=== PATIENT | male | born 1975 | race Caucasian/White ===

== ENCOUNTER 2025-01-31 18:45 | Emergency (ER) | payer BC, SELFPAY ==
[2025-01-31 18:47] VITALS: BP 133/80; PULSE 85; RESP 15; TEMP 36.2; O2SAT 96
[2025-01-31 18:50] VITALS: BMI 44.1
--- NOTE | 2025-01-31 19:00 | RAD_ITS ---
PROCEDURE: ANKLE MIN 3 VIEWS REASON FOR EXAM: 49-year-old male, left ankle pain, unable to bear weight. TECHNIQUE: 3 view(s) of the left ankle COMPARISON: None. FINDINGS: Diffuse osseous demineralization. No visible fracture. No suspicious bone lesion. Moderate arthrosis. Normal alignment. Mortise appears intact. No effusion. Soft tissues are unremarkable. RAD/Ankle min 3 Views IMPRESSION: No acute fracture. Reading Location: [id number]
--- NOTE | 2025-01-31 19:41 | EDS_ITS ---
HPI History of Present Illness Chief Complaint: Lower Extremity Injury PFSH ON LICENSE OF [facility] Home Medications ?Medication ?Instructions ?Recorded ?Last Taken ?Type citalopram 20 mg tablet 20 mg PO DAILY 06/28/14 Unkn own History lisinopril 20 mg tablet 20 mg PO DAILY 06/28/14 Unkn own History cyclobenzaprine 10 mg tablet 10 mg PO TID PRN PRN Musc le Spasm 07/06/16 Unknown Rx ##14 hydrocodone-acetaminophen 5-325mg 1 tab PO Q6H PRN PRN Pain ##10 07/06/16 Unknow n Rx 5mg-325mg ibuprofen 400 mg tablet 800 mg (2 x 400 mg) PO Q8H P RN PRN 07/06/16 Unknown Rx Pain ##14 Allergy/AdvReac Type Severity Reaction Status Date / Time No Known Allergies Allergy Verified 01/31/25 18:50 Social History (System 01/19/20 @ 14:54 by Giorgio Patel) Smoking Status: Never smoker EXAM Physical Exam Const Vital Signs: 01/31/25 18:47 Temperature 97.2 F L Temperature Source Temporal Pulse Rate 85 Respiratory Rate 15 Blood Pressure 133/80 H Blood Pressure Mean 97 Pulse Ox 96 Oxygen Delivery Method [place] [facility] [place] Medical decision making narrative: HISTORY OF PRESENT ILLNESS: 49-year-old male presents with left ankle pain. Notes he heard a pop. Notes he had difficulty bearing weight secondary to pain REVIEW OF SYSTEMS: Pertinent positives: Left ankle pain Pertinent negatives: Numbness, tingling, loss of sensation PHYSICAL EXAM: Nursing triage notes reviewed, Vital signs reviewed Constitutional: please see mdm Extremities: Left ankle with slight edema and TTP over lateral ligamentous structures. Overall intact ligamentous structures in terms of plantar and dorsiflexion, inversion and eversion. Compartments are soft to the left lower extremity Neuro: Intact sensation L1-S1 dermatomal distributions. Intact 5/5 strength in hip flexion (T12-L3). Knee extension (L2-L4). Ankle dorsiflexion (L4-L5). Ankle plantar flexion (S1). Great toe extension (L5). 2+ patellar and Achilles DTRs. Skin: No rash or lesions noted MEDICAL DECISION MAKING: Chief Complaint: Ankle pain MDM Narrative: The patient was initially hemodynamically stable, afebrile and nontoxic- appearing. Exam with swelling TTP over lateral ligamentous structures. I considered the following differential diagnosis: Ankle fracture, dislocation, ankle sprain X-rays obtained in triage ALL IMAGES (IF OBTAINED) HAVE BEEN PERSONALLY REVIEWED AND INTERPRETED BY MYSELF. X-ray of the left ankle read reviewed personally so showed no evidence of obvious bony abnormality such as fracture or dislocation. Radiologist agreed my interpretation. Patient was given RICE instructions. Ankle sprain instructions. Strict return precautions. Lei wrap applied. The patient and/or family, caregivers express understanding. The patient and/or family, caregivers agrees with the plan. Shared decision making: I will have a discussion with the patient and or visitors regarding risk/benefits of further testing or admission. They will be made aware of of the risk/benefits inherent in this decision they will be given the opportunity to voice understanding. Total critical care time today provided was at least 0 minutes. This excludes separately billable procedures. Critical care time (if documented) is secondary to the patient having high probability of clinically significant/life threatening deterioration in the patient's condition which required my urgent intervention. Impression: 1. Acute left ankle Dispo: Discharge home This note was generated with [employer] dictation software. It may contain incorrect words, spelling, and punctuation that were not noted in review of the chart prior to signing. Radiography Diagnostic Testing: Clinical Impression(s) from Imaging Studies Ankle X-Ray 01/31/25 19:00 IMPRESSION: No acute fracture. Reading Location: [facility] Discharge Plan Triage Chief Complaint: Lower Extremity Injury ED Provider: Cristofer Santana Dx/Rx/DC Orders Instructions: ED Sprain Ankle W X Ray, ED RICE Prescriptions: No Action lisinopril 20 MG tablet 20 mg PO DAILY citalopram 20 MG tablet 20 mg PO DAILY cyclobenzaprine 10 MG tablet 10 mg PO TID PRN PRN (Reason: Muscle Spasm) Qty: 14 0RF hydrocodone-acetaminophen 1 TABLET tablet 1 tab PO Q6H PRN PRN (Reason: Pain) Qty: 10 0RF ibuprofen 400 MG tablet 800 mg PO Q8H PRN PRN (Reason: Pain) Qty: 14 0RF Stand Alone Forms: ED Work / School Excuse Primary Care Provider: Alex Branch Referrals: Compa Samaniego PA [Non-Staff] - Activity Restrictions/Additional Instructions: Thank you for trusting us with your care today! Your x-ray did not reveal evidence of a broken bone. You likely suffered from an ankle sprain. Please take Tylenol (2 pills, 650 mg), ibuprofen (2 pills, 400 mg) every 6 hours as needed for pain and fever control. Please rest, ice, compress and elevate the involved extremity. Please perform progressive range of motion exercises after 24 hours rest. Please return to the emergency department if your symptoms change or worsen. Please follow with your primary care physician for further outpatient evaluation and management. Print Language: Palauan Disposition Disposition: Home, Self Care
== END 2025-01-31 20:18 | disposition home or self-care (01) ==
PROVIDERS: Emergency Provider Emergency Medicine; PCP Family Medicine; Referring Provider Emergency Medicine; Visit Provider Emergency Medicine
DX: M25.572 Pain in left ankle and joints of left foot (principal)
CPT/HCPCS: 73610; 99282

== ENCOUNTER 2025-09-09 17:37 | Inpatient (IN) | payer BC, SELFPAY ==
[2025-09-09] VITALS (8 sets, daily range): BP systolic 112–166; BP diastolic 75–107; PULSE 99–115; RESP 16–20; TEMP 37.2–38.5; O2SAT 93–100; BMI 44.0; BMI 42.7
--- NOTE | 2025-09-09 18:54 | CT_ITS ---
PROCEDURE: CT/Soft Tissue Neck WITH Contrast
[2025-09-09] MEDS: 0.9% Normal Saline (1000mL) 1,000 ML 1000 ML IV (19:10)
[2025-09-09 19:27] LABS: Hematocrit 47.8 % (40-54); Hemoglobin 16.7 g/dL (13.0-16.5); Immature Granulocytes Count 0.100 X10^3/uL (0.0-0.0); Mean Corp Hgb Conc 34.9 g/dL (32-36); Mean Corpuscular Volume 87.2 fL (80-94); Mean Platelet Vol. 10.4 fl (6.2-12.0); NRBC Flagged by Analyzer 0 % (0-5); Platelet Count 203 K/mm3 (150-450); RBC Distribution Width CV 11.5 % (11.6-14.6); RBC Distribution Width SD 37.2 fl (35.1-43.9); Red Blood Count 5.48 M/mm3 (4.6-6.2); White Blood Count 16.6 K/mm3 (4.4-11.0)
[2025-09-09] MEDS: Ampicillin/Sulbactam 3 GM in 0.9% Normal Saline (100mL MB+) 100 ML IV (19:28)
[2025-09-09 19:40] LABS: AST(SGOT) 20 U/L (<=37); Alanine Aminotransfer ALT/SGPT 26 U/L (<=46); Albumin, Serum 4.4 g/dL (3.5-5.0); Alkaline Phosphatase 48 U/L (40-129); Anion Gap 14 (5-15); BUN 8 mg/dL (4-19); BUN/Creat Ratio 10.1 RATIO (10-20); Calcium,Total 9.3 mg/dL (7.6-11.0); Carbon Dioxide 22.5 mmol/L (21.0-32.0); Chloride 99 mmol/L (98-108); Estimated Creatinine Clearance 153.15 ml/min (50-250); Globulin 3.2 g/dL (2.2-4.2); Glucose 162 mg/dL (70-99); Potassium 4.0 mmol/L (3.3-5.1)
--- NOTE | 2025-09-09 21:16 | EX.ED.DYSGE1 ---
HPI History of Present Illness Chief Complaint: Sore Throat Detail of Chief Complaint: Sore throat, difficulty swallowing, fever and chills Informant: patient and spouse/S.O. Onset/Context/Timing Onset: Yesterday Context: Sudden Onset Timing: Continuous Quality: Pain Location: Larynx/anterior neck Current Severity: Moderate Maximum Severity: Severe Worsened by: Swallowing saliva or anything Relieved by: Nothing Associated Symptoms Associated Symptoms: Fever and chills and change in voice Narrative Narrative: Patient is a 49-year-old male. He presents with sore throat, fever, chills and change in voice. He denies cough, rhinorrhea or congestion. He denies rash. He denies myalgias arthralgias. He has no history of medic fever, heart murmur, SBE. He has recently seen Dr. Leland Walton. Patient denies headache, photophobia, visual change, auditory symptoms, posterior neck pain. Patient reports significant pain with swallowing. He denies drooling. He does have poor dentition. He localizes the pain to the larynx area. Prior similar symptoms: No Recent Illness/Hospitalization: No PFSH PFSH Medical History (Updated 09/09/25 @ 21:[address] Sheri Allen MD) Heavy alcohol use Past history of chewing tobacco use Morbid obesity Hyperlipemia GERD (gastroesophageal reflux disease) Hypertension Sleep apnea Home Medications ?Medication ?Instructions ?Recorded ?Last Taken ?Type lisinopril 20 mg tablet 20 mg PO DAILY 06/28/14 Unknown History ibuprofen 400 mg tablet 800 mg (2 x 400 mg) PO Q8H PRN PRN 07/06/16 Unknown Rx Pain ##14 atorvastatin 20 mg tablet 20 mg PO DAILY 09/09/25 Unknown History omeprazole 40 mg capsule,delayed 40 mg PO DAILY 09/09/25 Unknown History release Allergy/AdvReac Type Severity Reaction Status Date / Time No Known Allergies Allergy Verified 09/09/25 17:39 Family History (Updated 09/09/25 @ 21:[address] Sheri Allen MD) Mother PAF (paroxysmal atrial fibrillation) Heart disease Hypertension Diabetes Father COPD (chronic obstructive pulmonary disease) Surgical History (Updated 09/09/25 @ 21:[address] Sheri Allen MD) Hx of hand surgery Social History (Updated 09/09/25 @ 21:[address] Sheri Allen MD) household members: spouse Smoking Status: Never smoker Smokeless tobacco user: chewing tobacco how long ago did patient quit smoking: Quit chew tobacco mid August 2025, using nicotine supplements currently. alcohol intake: current alcohol intake frequency: 3 or more drinks per day Alcohol type: beer details: 4-5 beers daily. No Hx withdrawal sxs if does not. substance use type: does not use ROS ROS ED Constitutional Constitutional ED: Reports chills, fever(s) and sweats; Denies subjective Eyes Eyes: Denies blurry vision, change in vision or diplopia ENT ENT ED: Reports sore throat; Denies ear pain or rhinorrhea Cardiovascular Cardiovascular: Denies chest pain or palpitations Respiratory/Chest Respiratory/Chest: Denies cough, dyspnea or dyspnea on exertion Gastrointestinal Gastrointestinal: Denies abdominal pain, nausea or vomiting Musculoskeletal Musculoskeletal: Reports neck pain; Denies arthralgias or myalgias Integumentary Denies rash Neurologic Neurologic: Denies paresthesias or weakness Endocrine Endocrinology: Denies cold intolerance or heat intolerance Hematologic/Lymphatic Hematologic/Lymphatic: Reports systems reviewed and no addt'l complaints, except as documented EXAM Physical Exam Const Vital Signs: 09/09/25 17:39 09/09/25 18:54 09/09/25 20:00 Temperature 101.3 F H 99.7 F H 99.7 F H Temperature Source Oral Oral Oral Pulse Rate 115 H 112 H 115 H Respiratory Rate 20 H 18 20 H Blood Pressure 148/105 H 166/102 H 148/93 H Blood Pressure Mean 119 123 111 Pulse Ox 96 94 100 Oxygen Delivery Method Room Air Room Air Room Air 09/09/25 21:00 09/09/25 22:00 09/09/25 22:03 Temperature 100.2 F H 100.2 F H 100.2 F H Temperature Source Oral Oral Pulse Rate 106 H 101 H 101 H Respiratory Rate 20 H 18 18 Blood Pressure 148/107 H 112/75 112/75 Blood Pressure Mean 120 87 87 Pulse Ox 96 95 95 Oxygen Delivery Method Room Air Room Air Positive well nourished, well developed and obese General Appearance ED: well developed; Negative for cyanotic, diaphoretic, NAD or pallor Nutritional Appearance: obese HEENT Reports moist mucous membranes HEENT Narrative: Uvula is midline. Patient has very large tonsils and almost abutting the uvula. There is some erythema of the soft tissue anterior to the anterior tonsillar pillars bilaterally. Patient does not complain of pain in his throat he points to his larynx. The trachea is midline. There is struder there is some shoddy cervical nodes noted. Eyes PERRL and EOMs intact bilaterally General Eye ED: Negative for pale conjunctiva or scleral icterus Neck no lymphadenopathy, supple and no JVD Chest Wall inspection of chest normal and palpation of chest normal Resp normal respiratory effort and clear to auscultation bilaterally Cardio regular rhythm, S1 normal heart sound, S2 normal heart sound and no murmurs Rate: tachycardic GI normal to inspection, nondistended, normoactive bowel sounds, non-tender, non-distended and no masses; Negative for hepatosplenomegaly Extremity normal to inspection Neuro oriented x3 and CN's II-XII intact bilaterally Sensorium / Orientation: alert Psych mental status grossly normal Skin no rashes or lesions noted, no wounds and skin turgor normal General Skin Exam: Negative for jaundice or pallor MDM MDM MDM Narrative Medical decision making narrative: Patient with abnormal sounds on auscultation of neck. Need to consider retropharyngeal abscess, parapharyngeal abscess, epiglottitis, exudative tonsillitis, patient does have poor dentition. Because of him complaining of pain anteriorly and he and his stating his neck appears swollen and the fact that he is febrile we will obtain a CT of the neck to rule out abscess, Blood cultures were obtained and appropriate laboratory studies obtained to assess white count as well as endorgan dysfunction. Patient received 1 L of normal saline wide open. He also received 3.0 g of Unasyn IV piggyback. After reviewing the CT he received 10 mg of Decadron. Patient was given a glass of water. He is able to drink 1 ounce. Since patient is having significant difficulties swallowing abilities not drooling recommendation is admission. He is agreeable. Spoke with the hospitalist. She requested that I speak with person on-call for ENT and if they have any recommendations. Lab Data Attestation: I reviewed the patient's lab results. Lab results narrative: White count is elevated 16.6 thousand with shift. Competence of metabolic panel is marked for glucose of 162. CO2 anion gap are normal. Lactate is normal. Labs: Laboratory Results - last 24 hr 09/09/25 19:05 WBC 16.6 H RBC 5.48 Hgb 16.7 H Hct 47.8 MCV 87.2 MCH 30.5 MCHC 34.9 RDW Std Deviation 37.2 RDW Coeff of Joaquin 11.5 L Plt Count 203 MPV 10.4 Immature Gran % (Auto) 0.600 Neut % (Auto) 82.4 H Lymph % (Auto) 8.4 L [place] % (Auto) 7.9 Eos % (Auto) 0.2 Baso % (Auto) 0.5 Absolute Neuts (auto) 13.7 H Absolute Lymphs (auto) 1.40 Nucleated RBC % 0 Sodium 135 Potassium 4.0 Chloride 99 Carbon Dioxide 22.5 Anion Gap 14 BUN 8 Creatinine 0.83 Estim Creat Clear Calc 153.15 Est GFR (MDRD) Non-Af 108 BUN/Creatinine Ratio 10.1 Glucose 162 H Lactic Acid 1.3 Calcium 9.3 Total Bilirubin 1.28 AST 20 ALT 26 Alkaline Phosphatase 48 Total Protein 7.5 Albumin 4.4 Globulin 3.2 Albumin/Globulin Ratio 1.4 Radiography Diagnostic Testing: Clinical Impression(s) from Imaging Studies Soft Tissue Neck CT 09/09/25 18:54 IMPRESSION: 1. Enlargement of the palatine tonsils, as may be seen with tonsillitis. There is suggestion of hypodensity within the left palatine tonsil which could represent phlegmon/abscess. Of note, neoplasm is not excluded on the basis of this exam, recommend direct visual inspection. 2. Narrow caliber of the basilar artery. Correlate with exam and recommend dedicated imaging if there is concern for posterior ischemia. Reading Location: [id number] Management Discussion w/another healthcare provider: Hospitalist (Documented narrative and of the MDM.) and [place] Drier Operator (Spoke with Dr. Riaz Obregon who is on-call for ENT. He agreed with treatment plan. This was relayed to Dr. Allen) Discharge Plan Dx/Rx/DC Orders Clinical Impression: Acute streptococcal tonsillitis, Dysphonia, Dysphagia, Fever and chills, Sinus tachycardia Disposition Disposition: [facility] Care [facility]
--- NOTE | 2025-09-09 21:21 | PCM.HP.STD ---
HPI - General General Date of Admission: 09/09/25 Date of Service: 09/09/25 Chief Complaint: Fever, sore throat, malaise, fatigue. HPI Narrative The patient is a 49 y/o M w/ PMHx: Former chew tobacco use, Heavy EtOH usage (4-5 beers daily, not since onset recently illness), Morbid obesity, HTN, HLD, GERD, RE who presents to the [facility] ED on 09/09/2025 with history of onset sore throat, fever, malaise, fatigue with no improvement with OTC medications starting on Wednesday progressively worsening prompting ED evaluation.Patient notes difficulty swallowing secondary to severity of pain elicited. Workup in the ED included T99.7, heart rate 115, BP 140/93, respiratory rate 20, 100% room air, CT soft tissue neck with enlargement of pallentine tonsils suggestive of hypodensity within the left palatine tonsil and possibly a phlegmon/abscess, incidentally noted narrow caliber basilar artery, CBC with WC 16.6,Hgb16.7, platelet 203 with left shift, CMP unremarkable aside glucose 162, lactic acid 1.3, blood culture x 2 pending per ED. In the ED patient administered Decadron 10 mg IV x 1 as well as Unasyn 3 g IV x 1 and 1 L normal saline. Patient reportedly saw Leland Webb approximately 1 week prior to current presentation at that time for specific ear issues ongoing. ED notes intention to discuss current status of patient and plan of care with ENT on-call and once this is performed if appropriate will plan admission with continued consultation in case of intervention needs. [facility]LY [facility] Medical History Heavy alcohol use Past history of chewing tobacco use Morbid obesity Hyperlipemia GERD (gastroesophageal reflux disease) Hypertension Sleep apnea Home Medications ?Medication ?Instructions ?Recorded ?Last Taken ?Type lisinopril 20 mg tablet 20 mg PO DAILY 06/28/14 Unknown History ibuprofen 400 mg tablet 800 mg (2 x 400 mg) PO Q8H PRN PRN 07/06/16 Unknown Rx Pain ##14 atorvastatin 20 mg tablet 20 mg PO DAILY 09/09/25 Unknown History omeprazole 40 mg capsule,delayed 40 mg PO DAILY 09/09/25 Unknown History release Allergy/AdvReac Type Severity Reaction Status Date / Time No Known Allergies Allergy Verified 09/09/25 17:39 Family History (Updated 09/09/25 @ 21:[address] Sheri Allen MD) Mother PAF (paroxysmal atrial fibrillation) Heart disease Hypertension Diabetes Father COPD (chronic obstructive pulmonary disease) Surgical History (Updated 09/09/25 @ 21:[address] Sheri Allen MD) Hx of hand surgery Social History (Updated 09/09/25 @ 21:[address] Sheri Allen MD) household members: spouse Smoking Status: Never smoker Smokeless tobacco user: chewing tobacco how long ago did patient quit smoking: Quit chew tobacco mid August 2025, using nicotine supplements currently. alcohol intake: current alcohol intake frequency: 3 or more drinks per day Alcohol type: beer details: 4-5 beers daily. No Hx withdrawal sxs if does not. substance use type: does not use ROS ROS Narrative Admission Review of Systems: CONSTITUTIONAL: No weight loss, + fever, chills, weakness or fatigue. HEENT: + Sore throat. Eyes: No visual loss, blurred vision, double vision or yellow sclerae. Ears, Nose, Throat: No hearing loss, sneezing, congestion, runny nose. SKIN: No rash or itching, lesions, wounds. CARDIOVASCULAR: No chest pain, chest pressure or chest discomfort, palpitations, edema, orthopnea, syncopal events. RESPIRATORY: No shortness of breath, cough or sputum, wheezing, hemoptysis. GASTROINTESTINAL: + anorexia. No nausea, vomiting or diarrhea, abdominal pain, melena, BRBPR. GENITOURINARY: No dysuria, frequency, urgency or retention. NEUROLOGICAL: No headache, dizziness, syncope, paralysis, ataxia, numbness or tingling in the extremities, focal weakness, change in bowel or bladder control, seizure. MUSCULOSKELETAL: + muscle, back pain, joint pain or stiffness. HEMATOLOGIC: No anemia, bleeding or bruising. LYMPHATICS: No enlarged nodes. No history of splenectomy. PSYCHIATRIC: No history of depression or anxiety. ENDOCRINOLOGIC: No reports of sweating, cold or heat intolerance. No polyuria or polydipsia. ALLERGIES: No history of asthma, hives, eczema or rhinitis. Vital Signs Vital Signs Vital Signs: 09/09/25 17:39 09/09/25 18:54 09/09/25 20:00 Temperature 101.3 F H 99.7 F H 99.7 F H Temperature Source Oral Oral Oral Pulse Rate 115 H 112 H 115 H Respiratory Rate 20 H 18 20 H Blood Pressure 148/105 H 166/102 H 148/93 H Blood Pressure Mean 119 123 111 Pulse Ox 96 94 100 Oxygen Delivery Method Room Air Room Air Room Air 09/09/25 21:00 Temperature 100.2 F H Temperature Source Oral Pulse Rate 106 H Respiratory Rate 20 H Blood Pressure 148/107 H Blood Pressure Mean 120 Pulse Ox 96 Oxygen Delivery Method Room Air Weight Weight: 306 lb 14.135 oz Body Mass Index (BMI) 44.0 Physical Exam Narrative Physical Examination: General: Awake, alert, oriented x 3 and cooperative, seated upright in the ED bed, fatigued, uncomfortable appearing. Skin: Normal color, normal turgor, no icterus, no cyanosis except occasional abrasion. HEENT: AT/NC, EOMI, PERRLA, dry MM, notably enlarged tonsils nearly abutting the uvula with erythema of the soft tissues bilaterally, notable tenderness to palpation of the cervical lymph nodes with some enlargement, no carotid bruits, difficult discern JVD given very thickened neck. Lungs: Mildly diminished, greater bases, appropriate effort, no rales, ronchi or wheezing. Heart: Mildly tachycardic with regular rhythm; no gallop, rub audible. Abdomen: Soft, morbidly obese, NTTP, no obvious distention, distant normal BS, no appreciated HSM however habitus makes evaluation difficult. Extremities: No cyanosis, no clubbing, no significant distal edema. Neurological: Patient awake, alert, oriented as noted, cognitive function intact; pupils equally reactive to light and accommodation, cranial nerves grossly normal, moving all 4 extremities, no focal deficits, strength mildly to moderately globally decreased secondary to acute presentation complaints. Psychiatric: Affect appears fatigued, uncomfortable, ill-appearing, no acute evidence of depressive or anxiety feelings. Results Lab / Micro Data 09/09/25 19:05 09/09/25 19:05 Labs: Laboratory Results - last 24 hr 09/09/25 19:05: WBC 16.6 H, RBC 5.48, Hgb 16.7 H, Hct 47.8, MCV 87.2, MCH 30.5, MCHC 34.9, RDW Std Deviation 37.2, RDW Coeff of Joaquin 11.5 L, Plt Count 203, MPV 10.4, Immature Gran % (Auto) 0.600, Neut % (Auto) 82.4 H, Lymph % (Auto) 8.4 L, [place] % (Auto) 7.9, Eos % (Auto) 0.2, Baso % (Auto) 0.5, Absolute Neuts (auto) 13.7 H, Absolute Lymphs (auto) 1.40, Nucleated RBC % 0, Sodium 135, Potassium 4.0, Chloride 99, Carbon Dioxide 22.5, Anion Gap 14, BUN 8, Creatinine 0.83, Estim Creat Clear Calc 153.15, Est GFR (MDRD) Non-Af 108, BUN/Creatinine Ratio 10.1, Glucose 162 H, Lactic Acid 1.3, Calcium 9.3, Total Bilirubin 1.28, AST 20, ALT 26, Alkaline Phosphatase 48, Total Protein 7.5, Albumin 4.4, Globulin 3.2, Albumin/Globulin Ratio 1.4 Micro: Microbiology 09/09/25 19:38 Swab (Method) Streptococcus pyogenes (PCR) - Final Streptococcus Group A Imaging Radiology Impression Soft Tissue Neck CT 09/09/25 18:54 IMPRESSION: 1. Enlargement of the palatine tonsils, as may be seen with tonsillitis. There is suggestion of hypodensity within the left palatine tonsil which could represent phlegmon/abscess. Of note, neoplasm is not excluded on the basis of this exam, recommend direct visual inspection. 2. Narrow caliber of the basilar artery. Correlate with exam and recommend dedicated imaging if there is concern for posterior ischemia. Reading Location: [id number] Assessment & Plan Assessment/Plan (1) Acute tonsillitis: (2) Tonsillar abscess: PLAN: Plan The patient is a 49 y/o M w/ PMHx: Former chew tobacco use, Heavy EtOH usage (4-5 beers daily, not since onset recently illness), Morbid obesity, HTN, HLD, GERD, RE who presents to the [facility] ED on 09/09/2025 with history of onset sore throat, fever, malaise, fatigue with no improvement with OTC medications prompting ED evaluation.Patient notes difficulty swallowing secondary to severity of pain elicited. #1. Acute tonsillitis with possible phlegmon/abscess of the left pallentine tonsil: Will admit to medical surgical floor, will maintain on clear liquids until midnight with n.p.o. status following, will maintain on IV Decadron, will maintain on IV Unasyn, will continue patient home PPI, will have as needed pain regimen and antiemetic regimen, will continue ED initiated ENT consultation as long as on-call physician is willing to evaluate patient during her admission in case of intervention needs. #2. Incidentally noted narrow caliber basilar artery: CT soft tissue neck with incidentally noted narrow caliber basilar artery, encourage continued follow-up and imaging outpatient as needed. #3. Hyperglycemia without diabetic history: Admission glucose 162, possibly stress response but given history to be cautious hemoglobin A1c requested especially given plan usage of steroids. #4. Hypertension: Continue home regimen including lisinopril with hold parameters as needed, PRN hydralazine. #5. Hyperlipidemia: Will continue patient patient on statin therapy. #6. Morbid Obesity: Weight loss and lifestyle changes encouraged. #7. RE: Patient does not use PAP therapy. #8. EtOH Abuse: Patient notes routine consumption of 4-5 beers per day although he has had none since onset of his illness on Wednesday with no withdrawal symptoms reported. Will maintain on CIWA protocol, MVI, thiamine and folic acid. Magnesium and phosphorus levels were requested. Discussed and strongly encouraged reduction of alcohol intake. #9. GERD: Continue patient on PPI. #10. Former chew tobacco: Encouraged continued tobacco cessation. #11. DVT prophylaxis: SCDs in case of operative intervention needs. Charges/Coding Visit Charges Inpatient E&M: 44163 Init Hosp L3
[2025-09-09 22:30] LABS: Magnesium 2.1 mg/dL (1.5-2.2)
[2025-09-09] MEDS: BENZOCAINE/MENTHOL 1 LOZENGE MUCOUS MEM (23:33)
[2025-09-10] VITALS (10 sets, daily range): BP systolic 144–153; BP diastolic 86–103; PULSE 81–90; RESP 16–17; TEMP 36.4–36.7; O2SAT 83–97
--- NOTE | 2025-09-10 | NURSING ---
PT IS NPO
[2025-09-10] MEDS: 0.9% Normal Saline (1000mL) 1,000 ML 100 ML IV (00:07)
[2025-09-10] MEDS: Ampicillin/Sulbactam 3 GM in 0.9% Normal Saline (100mL MB+) 100 ML IV ×3 (00:10→11:17)
--- NOTE | 2025-09-10 01:44 | EKG12_ITS ---
Test Reason : AM EKG
[2025-09-10 06:06] LABS: Hematocrit 45.7 % (40-54); Hemoglobin 16.3 g/dL (13.0-16.5); Immature Granulocytes Count 0.080 X10^3/uL (0.0-0.0); Mean Corp Hgb Conc 35.7 g/dL (32-36); Mean Corpuscular Volume 87.7 fL (80-94); Mean Platelet Vol. 10.4 fl (6.2-12.0); NRBC Flagged by Analyzer 0 % (0-5); Platelet Count 195 K/mm3 (150-450); RBC Distribution Width CV 11.7 % (11.6-14.6); RBC Distribution Width SD 37.7 fl (35.1-43.9); Red Blood Count 5.21 M/mm3 (4.6-6.2); White Blood Count 15.4 K/mm3 (4.4-11.0)
[2025-09-10 06:42] LABS: AST(SGOT) 18 U/L (<=37); Alanine Aminotransfer ALT/SGPT 26 U/L (<=46); Albumin, Serum 4.2 g/dL (3.5-5.0); Alkaline Phosphatase 48 U/L (40-129); Anion Gap 12 (5-15); BUN 10 mg/dL (4-19); BUN/Creat Ratio 13.7 RATIO (10-20); Calcium,Total 9.1 mg/dL (7.6-11.0); Carbon Dioxide 21.1 mmol/L (21.0-32.0); Chloride 102 mmol/L (98-108); Estimated Creatinine Clearance 176.01 ml/min (50-250); Globulin 3.1 g/dL (2.2-4.2); Glucose 213 mg/dL (70-99); Potassium 4.2 mmol/L (3.3-5.1)
[2025-09-10] MEDS: Thiamine Hydrochloride 100 MG Tablet PO (08:11)
--- NOTE | 2025-09-10 09:42 | PN.HOSP_ITS ---
Reason for Visit
--- NOTE | 2025-09-10 09:42 | PCM.PN.HOSP ---
Reason for Visit Chief Complaint: Fever, sore throat, malaise, fatigue. Subjective Subjective Still has a little bit of a sore throat and slight change in voice but significantly improved from yesterday, no difficulty breathing, able to swallow with pain much better than it had been Objective Data Objective Data Vital Signs: Vital Signs Temp Pulse Resp BP Pulse Ox O2 Del Method O2 Flow Rate 97.8 F 84 16 149/103 H 96 Room Air 2 09/10/25 08:06 09/10/25 08:06 09/10/25 08:06 09/10/25 08:06 09/10/25 08:06 09/10/25 08:06 09/10/25 06:35 Oxygen Flow Rate (L/min) 2 Oxygen Delivery Method Room Air Weight: 135 kg Body Mass Index (BMI) 42.7 Intake & Output: Intake and Output for Last 24 Hours 09/08/25 09/09/25 09/10/25 23:59 22:59 23:59 Intake Total 1100 / 1100 300 / 300 Balance 1100 / 1100 300 / 300 Lab / Micro Data 09/10/25 05:34 09/10/25 05:34 Labs: Laboratory Results - last 24 hr 09/09/25 19:05: WBC 16.6 H, RBC 5.48, Hgb 16.7 H, Hct 47.8, MCV 87.2, MCH 30.5, MCHC 34.9, RDW Std Deviation 37.2, RDW Coeff of Joaquin 11.5 L, Plt Count 203, MPV 10.4, Immature Gran % (Auto) 0.600, Neut % (Auto) 82.4 H, Lymph % (Auto) 8.4 L, [place] % (Auto) 7.9, Eos % (Auto) 0.2, Baso % (Auto) 0.5, Absolute Neuts (auto) 13.7 H, Absolute Lymphs (auto) 1.40, Nucleated RBC % 0, Sodium 135, Potassium 4.0, Chloride 99, Carbon Dioxide 22.5, Anion Gap 14, BUN 8, Creatinine 0.83, Estim Creat Clear Calc 153.15, Est GFR (MDRD) Non-Af 108, BUN/Creatinine Ratio 10.1, Glucose 162 H, Lactic Acid 1.3, Calcium 9.3, Phosphorus 2.7, Magnesium 2.1, Total Bilirubin 1.28, AST 20, ALT 26, Alkaline Phosphatase 48, Total Protein 7.5, Albumin 4.4, Globulin 3.2, Albumin/Globulin Ratio 1.4 09/10/25 05:34: WBC 15.4 H, RBC 5.21, Hgb 16.3, Hct 45.7, MCV 87.7, MCH 31.3, MCHC 35.7, RDW Std Deviation 37.7, RDW Coeff of Joaquin 11.7, Plt Count 195, MPV 10.4, Immature Gran % (Auto) 0.500, Neut % (Auto) 93.1 H, Lymph % (Auto) 4.8 L, [place] % (Auto) 1.4, Eos % (Auto) 0.0, Baso % (Auto) 0.2, Absolute Neuts (auto) 14.3 H, Absolute Lymphs (auto) 0.74 L, Nucleated RBC % 0, Sodium 135, Potassium 4.2, Chloride 102, Carbon Dioxide 21.1, Anion Gap 12, BUN 10, Creatinine 0.71, Estim Creat Clear Calc 176.01, Est GFR (MDRD) Non-Af 113, BUN/Creatinine Ratio 13.7, Glucose 213 H, Hemoglobin A1c 6.0 H, Calcium 9.1, Total Bilirubin 0.80, AST 18, ALT 26, Alkaline Phosphatase 48, Total Protein 7.2, Albumin 4.2, Globulin 3.1, Albumin/Globulin Ratio 1.3 Micro: Microbiology 09/09/25 19:38 Swab (Method) Streptococcus pyogenes (PCR) - Final Streptococcus Group A Radiography Diagnostic Testing: Radiology Impression Soft Tissue Neck CT 09/09/25 18:54 IMPRESSION: 1. Enlargement of the palatine tonsils, as may be seen with tonsillitis. There is suggestion of hypodensity within the left palatine tonsil which could represent phlegmon/abscess. Of note, neoplasm is not excluded on the basis of this exam, recommend direct visual inspection. 2. Narrow caliber of the basilar artery. Correlate with exam and recommend dedicated imaging if there is concern for posterior ischemia. Reading Location: [facility] Physical Exam Narrative General: Alert, oriented, no apparent distress HEENT: Atraumatic, normocephalic, difficult to visualize posterior pharynx with habitus and tongue Eyes: Anicteric, normal conjunctiva, extraocular movements grossly intact Neck: Some tenderness palpation but not firm and patient reports that tenderness is significantly better Respiratory: Clear to auscultation bilaterally, normal respiratory effort Cardiovascular: Regular rate and rhythm GI: Soft, nontender, nondistended Extremities: No significant pitting peripheral edema Musculoskeletal: Moving all extremities Neuro: No overt focal neurological deficits Skin: No rashes appreciated Psych: Cooperative Assessment & Plan Assessment/Plan (1) Acute streptococcal tonsillitis: (2) Tonsillar abscess: PLAN: Plan 49-year-old male history of hypertension and GERD presented to [facility] ED 09/09/2025 due to sore throat, difficulty swallowing, and fever and chills. In the ED temp 101.3, heart rate 115, blood pressure 148/105 with a pulse ox 96% on room air. White count found to be 16 with a hemoglobin of 16.7, lactic acid 1.3. Patient had CT of the neck which demonstrated enlargement of palatine tonsils consistent with tonsillitis as well as hypodensity within left palatine tonsil which could represent phlegmon/abscess and noted could not exclude neoplasm on basis of exam and recommended direct visual inspection. Patient given 10 mg of Decadron, 3 g of Unasyn and normal saline and hospitalist contacted for admission. They requested ENT be contacted given the nature of the case and ED physician spoke with Dr. Obregon he was in agreement with plan. Patient admitted. # Acute tonsillitis with possible phlegmon/abscess of left palatine tonsil - Based on CT scan -Found to be strep a positive - Patient was given clear liquid diet and n.p.o. at midnight in the event he needs intervention - IV Decadron - IV Unasyn - Home PPI - Supportive care - ENT consultation #Incidentally noted narrow caliber basilar artery -CT soft tissue neck with incidentally noted narrow caliber basilar artery, encourage continued follow-up and imaging outpatient as needed #Hypertension - Continue lisinopril # Hyperlipidemia - Continue statin #GERD -Continue PPI # Alcohol use -Patient does drink several drinks a day however has not drank since symptoms started on Wednesday and denies any alcohol withdrawal symptoms -Was started on CIWA to monitor symptoms on presentation to evaluate for any developing withdrawal -Started on thiamine and folate #DVT ppx: SCDs Rose Zaidi MD Charges/Coding Visit Charges Inpatient E&M: 34941 Subs Hosp L2
[2025-09-10] MEDS: 0.9% Saline Lock 10 ML Syringe IV (11:19)
--- NOTE | 2025-09-10 12:45 | CASEMGMT ---
HILLARY FREGOSO Assessment: Face to Face with pt for initial transition planning/care coordination assessment. RN ZENOBIA introduced self and role at [facility], pt voices understanding and consents to assessment. Pt is A&O x4 and answers all questions appropriately at this time. Pt sitting up in bed in no distress with at bedside. Care providers, pharmacy, and demographics verified/updated. Admitting Dx: acute tonsilitis with tonsillar abscess Strata Score: 1 PCP:RODRIGO Thomson Specialists:[facility]- pt could not recall name of provider. Preferred Pharmacy: [facility] Insurance: [employer] Prescription Benefit: yes LNOK: Ashley Ball, sharad Living Arrangements: Pt lives with and dtr in a two story home with a ramp and 1 step to enter through the back. Pt reports he is I in ADLs/IADLs and denies concerns at home. Transportation: Pt drives self and denies concerns with transportation. DME:shower chair, cane, walker- Pt does not use AD HHC/SNF: Denies hx of Pt states no concerns with going home at time of dc. Pt states he does not smoke cigarettes or use illegal/street drugs. Pt states he drinks 4 beers per day. Pt denies need for resources for cessation, pt states I can stop if I want. Pt is awaiting consult from ENT. Pt states no further concerns/needs. CM to follow. Advised pt to ask CM if any further questions/concerns/needs arise, voices understanding. Pt Goal: Home Plan: Home Claudia THORNTON CM
--- NOTE | 2025-09-10 17:25 | DCINST_ITS ---
Discharge Instructions
--- NOTE | 2025-09-10 17:25 | PCM.DC ---
Discharge Instructions DC O2, CPAP, BIPAP needs Home O2 Discharge instructions: No Dressing / Incision Discharge Activity: - (Increase activity as tolerated) Follow Up Care Test Results: Test results from this visit will be discussed in further detail at your follow-up appointment, if applicable. Discharge Plan Admission Admit Date/Time: 09/09/25 21:40 Primary Reason for Your Visit: Difficulty swallowing Attending Provider: Rose Zaidi Primary Care Provider: Leelee Thomson NP Consulting Providers: Riaz Obregon; Sheri Allen Instructions Patient Instructions: Tonsillitis in Adults Additional Instructions / Restrictions: DISCHARGE INSTRUCTIONS PLEASE READ *Please take this with you to your next doctors appointment* - You will be discharged on a Medrol Dosepak for swelling and Augmentin for your infection, please take these until otherwise instructed by the ear nose throat doctor -Please follow-up with ENT (ear nose throat) upon discharge, you will need to follow-up on Wednesday at 2:45 PM -Please call your primary care provider's office upon discharge to schedule a hospital follow up within 1 week. -For any concerning signs or symptoms please call 911 or proceed to the nearest emergency department Discharge Orders/Prescriptions Prescriptions: New amoxicillin-pot clavulanate 875-125 mg tablet 1 tab PO BID 10 Days Qty: 20 0RF methylprednisolone [Medrol (Jaron)] 4 mg tablets,dose pack See Rx Instructions .Route .COMPLEX Qty: 21 0RF Rx Instructions: Take 6 tabs tomorrow and decrease by 1 tab daily until done Continued lisinopril 20 MG tablet 20 mg PO DAILY ibuprofen 400 MG tablet 800 mg PO Q8H PRN PRN (Reason: Pain) Qty: 14 0RF atorvastatin 20 mg tablet 20 mg PO DAILY omeprazole 40 mg capsule,delayed release(DR/EC) 40 mg PO DAILY Referrals / Follow Up: Riaz Obregon MD [Med Staff - Active Staff, Ear Nose Throat (ENT)] - 09/12/25 2:45 pm Referral Note: call office to be seen on Wednesday Leelee Thomson NP, [employer] [Primary Care Provider, Medical] Disposition Disposition (needs filled in before D/C Order can be placed): Home, Self Care
--- NOTE | 2025-09-10 17:31 | PCM.DC.SUM ---
Providers Date of Admission: 09/09/25 Date of Discharge: 09/10/25 Primary Care Physician: DANDRE Dozier Consultations 09/09/25 23:07 Consult: ENT Routine Consulting Provider: Riaz Obregon Reason for Consult: Acute tonsillitis with possible phlegmon/abscess of the left pallentine ton EMERGENT Consult: No MD Notified: Yes Date Notified: 09/09/25 Time Notified: 21:41 Method of Notification: ED Physician Initiated Reason For Visit: ACUTE TONSILLITIS W TONSILLAR ABSCESS Diagnosis Discharge Diagnosis (1) Acute streptococcal tonsillitis: Status: Acute Code(s): J03.00 - Acute streptococcal tonsillitis, unspecified (2) Tonsillar abscess: Status: Acute Code(s): J36 - Peritonsillar abscess Plan # Acute tonsillitis with possible phlegmon/abscess of left palatine tonsil #Incidentally noted narrow caliber basilar artery #Hypertension # Hyperlipidemia #GERD # Alcohol use Medications at Discharge Home Medications lisinopril 20 mg tablet 20 mg PO DAILY 06/28/14 ibuprofen 400 mg tablet 800 mg (2 x 400 mg) PO Q8H PRN PRN Pain ##14 07/06/16 atorvastatin 20 mg tablet 20 mg PO DAILY 09/09/25 omeprazole 40 mg capsule,delayed release 40 mg PO DAILY 09/09/25 amoxicillin 875 mg-potassium clavulanate 125 mg tablet 1 tab PO BID 10 days #20 tabs 09/10/25 methylprednisolone 4 mg tablets in a dose pack (Medrol (Jaron)) See Rx Instructions .Route .COMPLEX #21 tabs 09/10/25 Hospital Course Summary of Care Provided Minutes Spent on Discharge: 23 Hospital Course: Per HPI: The patient is a 49 y/o M w/ PMHx: Former chew tobacco use, Heavy EtOH usage (4-5 beers daily, not since onset recently illness), Morbid obesity, HTN, HLD, GERD, RE who presents to the [facility] ED on 09/09/2025 with history of onset sore throat, fever, malaise, fatigue with no improvement with OTC medications starting on Wednesday progressively worsening prompting ED evaluation.Patient notes difficulty swallowing secondary to severity of pain elicited. Workup in the ED included T99.7, heart rate 115, BP 140/93, respiratory rate 20, 100% room air, CT soft tissue neck with enlargement of pallentine tonsils suggestive of hypodensity within the left palatine tonsil and possibly a phlegmon/abscess, incidentally noted narrow caliber basilar artery, CBC with WC 16.6,Hgb16.7, platelet 203 with left shift, CMP unremarkable aside glucose 162, lactic acid 1.3, blood culture x 2 pending per ED. In the ED patient administered Decadron 10 mg IV x 1 as well as Unasyn 3 g IV x 1 and 1 L normal saline. Patient reportedly saw Leland Webb approximately 1 week prior to current presentation at that time for specific ear issues ongoing. ED notes intention to discuss current status of patient and plan of care with ENT on-call and once this is performed if appropriate will plan admission with continued consultation in case of intervention needs INTERVAL HISTORY: Patient improved significantly with Decadron and antibiotics, given his significant improvement ENT was contacted and recommended discharge with close outpatient follow-up. Patient scheduled for Wednesday. Patient tolerated diet without any difficulties and was swallowing well, significantly improved. Discharged with Medrol Dosepak and Augmentin. No new or acute complaints at time of discharge Weight / BMI Weight Weight: 135 kg Body Mass Index (BMI) 42.7 ABG / Lab / Microbiology Data 09/10/25 05:34 09/10/25 05:34 Laboratory: Laboratory Results - last 24 hr 09/10/25 11:20: POC Glucose 196 H Microbiology: Microbiology 09/09/25 19:38 Swab (Method) Streptococcus pyogenes (PCR) - Final Streptococcus Group A Radiography Diagnostic Testing: Radiology Impression Soft Tissue Neck CT 09/09/25 18:54 IMPRESSION: 1. Enlargement of the palatine tonsils, as may be seen with tonsillitis. There is suggestion of hypodensity within the left palatine tonsil which could represent phlegmon/abscess. Of note, neoplasm is not excluded on the basis of this exam, recommend direct visual inspection. 2. Narrow caliber of the basilar artery. Correlate with exam and recommend dedicated imaging if there is concern for posterior ischemia. Reading Location: [id number] D/C Instructions DC O2, CPAP, BIPAP Needs Home O2 Discharge instructions: No Meaningful Use Info Meaningful Use Meaningful Use Diagnoses (Choose all that apply): None applicable Discharge Plan Admission Admit Date/Time: 09/09/25 21:40 Primary Reason for Your Visit: Difficulty swallowing Attending Provider: Rose Zaidi Primary Care Provider: Leelee Thomson NP Consulting Providers: Riaz Obregon; Sheri Allen Instructions Forms: Work / School Excuse Patient Instructions: Tonsillitis in Adults Additional Instructions / Restrictions: DISCHARGE INSTRUCTIONS PLEASE READ *Please take this with you to your next doctors appointment* - You will be discharged on a Medrol Dosepak for swelling and Augmentin for your infection, please take these until otherwise instructed by the ear nose throat doctor -Please follow-up with ENT (ear nose throat) upon discharge, you will need to follow-up on Wednesday at 2:45 PM -Please call your primary care provider's office upon discharge to schedule a hospital follow up within 1 week. -For any concerning signs or symptoms please call 911 or proceed to the nearest emergency department Discharge Orders/Prescriptions Prescriptions: New amoxicillin-pot clavulanate 875-125 mg tablet 1 tab PO BID 10 Days Qty: 20 0RF methylprednisolone [Medrol (Jaron)] 4 mg tablets,dose pack See Rx Instructions .Route .COMPLEX Qty: 21 0RF Rx Instructions: Take 6 tabs tomorrow and decrease by 1 tab daily until done Continued lisinopril 20 MG tablet 20 mg PO DAILY ibuprofen 400 MG tablet 800 mg PO Q8H PRN PRN (Reason: Pain) Qty: 14 0RF atorvastatin 20 mg tablet 20 mg PO DAILY omeprazole 40 mg capsule,delayed release(DR/EC) 40 mg PO DAILY Referrals / Follow Up: Riaz Obregon MD [Med Staff - Active Staff, Ear Nose Throat (ENT)] - 09/12/25 2:45 pm Referral Note: call office to be seen on Wednesday Leelee Thomson NP, [facility] [Primary Care Provider, Medical] Disposition Disposition (needs filled in before D/C Order can be placed): Home, Self Care
== END 2025-09-10 18:50 | disposition home or self-care (01) | DRG 153 ==
LOC: ED 21:27 → MS3 22:39
PROVIDERS: Admitting Provider Family Medicine; Emergency Provider Emergency Medicine; PCP Registered Nurse; Visit Provider Internal Medicine
DX: J03.00 Acute streptococcal tonsillitis, unspecified (principal); Z68.41 Body mass index [BMI] 40.0-44.9, adult; I65.1 Occlusion and stenosis of basilar artery; I10 Essential (primary) hypertension; F10.10 Alcohol abuse, uncomplicated; E66.01 Morbid (severe) obesity due to excess calories; K21.9 Gastro-esophageal reflux disease without esophagitis; E78.5 Hyperlipidemia, unspecified; G47.33 Obstructive sleep apnea (adult) (pediatric); Z79.52 Long term (current) use of systemic steroids; Z79.899 Other long term (current) drug therapy; R73.9 Hyperglycemia, unspecified; Z87.891 Personal history of nicotine dependence; Y90.9 Presence of alcohol in blood, level not specified
CPT/HCPCS: 36415; 70491; 80053; 82962; 83036; 83605; 83735; 84100; 85025; 87040; 87651; 93005; 99284; Q9967; A4216; J0295